=== PATIENT | male | born 1985 | race Caucasian/White ===

== ENCOUNTER 2022-05-07 09:18 | Outpatient (CLI) | payer BC | END 2022-05-07 09:19 | disposition home or self-care (01) | LOC: BICRAD 09:18 | PROVIDERS: ATTEND Nurse Practitioner Family | DX: M13.862 Other specified arthritis, left knee (principal); M25.562 Pain in left knee; M24.80 Other specific joint derangements of unspecified joint, not elsewhere classified; S83.92XD Sprain of unspecified site of left knee, subsequent encounter ==